=== PATIENT | male | born 1940 | race Caucasian/White ===

== ENCOUNTER 2022-09-02 04:55 | Inpatient (IN) | payer MEDICARE, OTHER ==
[~2022-09-02] VITALS: Ht 175.3 cm; Wt 72.6 kg
--- NOTE | 2022-09-02 05:12 | NUR ---
Dr. Lopez at bedside. MSE in progress.
[2022-09-02] MEDS ORDERED: PANTOPRAZOLE SODIUM IV 80 MG in IV DEXTROSE 5% 100 ML IV ONE (05:15)
[2022-09-02] MEDS ORDERED: PANTOPRAZOLE SODIUM IV 80 MG in IV DEXTROSE 5% 500 ML IV ONE (05:15)
--- NOTE | 2022-09-02 05:15 | NUR ---
Daughter at bedside.
--- NOTE | 2022-09-02 05:16 | NUR ---
PATIENT'S DAUGHTER CANNOT RECALL HOME MEDICATIONS AT THIS TIME
[2022-09-02] MEDS ORDERED: PANTOPRAZOLE SODIUM 40 MG VIAL ONE (05:27)
[2022-09-02 05:45] LABS: *OCCULT BLOOD STOOL NEGATIVE (NEGATIVE)
[2022-09-02 06:01] LABS: ALANINE AMINOTRANSFERASE 23 U/L (16-63); ALKALINE PHOSPHATASE 85 U/L (50-136); ASPARTATE AMINOTRANSFERASE 18 U/L (15-37); BILIRUBIN,DIRECT 0.1 mg/dL (0.0-0.2); BILIRUBIN,TOTAL 0.4 mg/dL (0.2-1.0); CARBON DIOXIDE 26 mmol/L (21-32); CHLORIDE 103 mmol/L (98-107); CREATININE 1.2 mg/dL (0.6-1.3); GLUCOSE 185 mg/dL (74-106); POTASSIUM 4.4 mmol/L (3.5-5.1); TOTAL PROTEIN, SERUM 5.8 g/dL (6.4-8.2); UREA NITROGEN, BLOOD 39 mg/dL (7-18)
[2022-09-02 06:02] LABS: MEAN CORPUSCULAR HEMOGLOBIN 30.4 uug (23.8-33.4); MEAN CORPUSCULAR VOLUME 86.9 fL (73.0-96.2); PLATELET COUNT (AUTO) 159 K/uL (152-348)
[2022-09-02] MEDS ORDERED: IV NORMAL SALINE 1000 ML BAG IV ONE (06:15)
[2022-09-02] MEDS ORDERED: ONDANSETRON 4 MG/2 ML VIAL IV ONE (06:15)
[2022-09-02] MEDS ORDERED: ONDANSETRON 4 MG/2 ML VIAL ONE (06:21)
--- NOTE | 2022-09-02 06:29 | NUR ---
Started second IV on LT forearm 20G.
--- NOTE | 2022-09-02 07:07 | NUR ---
called [facility]. Was told to call back in 30-45 mins. [phone]
--- NOTE | 2022-09-02 07:19 | NUR ---
Report given to LEXI Darby.
--- NOTE | 2022-09-02 07:20 | NUR ---
Received endorsement from Jennie CHINCHILLA
--- NOTE | 2022-09-02 07:30 | NUR ---
Pt is tolerating the BT. Afebrile, V/S are WNL.
--- NOTE | 2022-09-02 07:50 | NUR ---
Called [facility] spoke to Akash and took pt's information. According to the insurance sales representative, pt has to call the physician of the patient and to approve the pt's admission to [facility] and that the physician has to call the transfer ctr to verify the pt's admission. Family of the pt made aware.
--- NOTE | 2022-09-02 08:00 | NUR ---
Increased the BT rate to 125ml/hr from the initial rate of 75ml/hr.
--- NOTE | 2022-09-02 08:20 | NUR ---
Called the [facility] again and spoke to Dakota regarding the pt's case and update. Director Of Restaurant Operations took the pt's information and place Dr. Jennings as the intake physician (pt's PCP) instead of Dr. Timur Almonte (franchise specialist) who approved the pt's admission. Pt's architect is Dr. Yuniel Rizo. Dakota stated that the hospital reached its bed capacity, pt may or may not have a bed today. Faxed the clinicals to [facility]. (fax #[phone]).
--- NOTE | 2022-09-02 08:59 | NUR ---
Pt's family decided to admit the patient in [place]. Called [facility] for admission, waiting for call back. Pt will be assigned to Jan ELLIOTT. Level of care: Telemetry, room 317. made aware.
--- NOTE | 2022-09-02 09:30 | NUR ---
BT done. Pt is stabel, tolerated BT well. Temp 98.6, BP 108/50, MN 89, RR20, O2 Sat 99. Denies any pain, headache. Nausea still present.
--- NOTE | 2022-09-02 09:45 | NUR ---
Called Tele for report. RN is unavailable. Will call back as soon as RN's ready.
--- NOTE | 2022-09-02 10:13 | NUR ---
Gave report to Jan ELLIOTT.
--- NOTE | 2022-09-02 11:35 | NUR ---
Transported pt to [facility] at rm 317. Pt stable, paused the protonix drip and on 2lpm of O2. Received by Jan ELLIOTT.
[2022-09-02 11:45] VITALS: BP 108/53
[2022-09-02] MEDS ORDERED: ONDANSETRON 4 MG/2 ML VIAL IV PRN (11:45)
[2022-09-02] MEDS ORDERED: REMEDY ESSENTIAL ZINC PASTE 113 GM TP PRN (11:45)
[2022-09-02] MEDS ORDERED: IV D5 1/2 NS 1000 ML 1,000 ML IV PRN (11:45)
[2022-09-02] MEDS ORDERED: ACETAMINOPHEN 325 MG TABLET PO PRN (11:45)
[2022-09-02] MEDS ORDERED: PANTOPRAZOLE SODIUM 40 MG TABLET.DR PO SCH (11:45)
[2022-09-02] MEDS ORDERED: MAGNESIUM HYDROXIDE 30 ML LIQUID UDC PO PRN (11:45)
[2022-09-02 11:56] LABS: HEMATOCRIT 28.6 % (36.7-47.1)
--- NOTE | 2022-09-02 12:30 | NUR ---
IVIS ELLIOTT WENT TO SEE PATIENT AND ATTEMPT TO ADMIT. SON DISTURBED THAT PATIENT NOT YET SEEN BY , AND EGD NOT YET DONE. REFUSED TO HAVE IVIS ADMIT FATHER.
--- NOTE | 2022-09-02 12:50 | NUR ---
ATTEMPTED TO SPEAK TO SON TO FIGURE OUT THE PROBLEM. STATES THAT NO ONE IS TAKING CARE OF HIS DAD. INSTRUCTED THAT DR. PALMA IS BEING NOTIFIED, AND ADMISSION ORDERS WILL BE WRITTEN.
--- NOTE | 2022-09-02 13:30 | NUR ---
ATTEMPTED TO SPEAK WITH SON X 3. SON NOT IN ROOM. PATIENT DOES NOT KNOW WHERE HE WENT.
--- NOTE | 2022-09-02 14:00 | NUR ---
SON RETURNED WITH SISTER. INSTRUCTED THAT ADMISSION ORDERS WERE WRITTEN AND WILL BE CARRIED OUT. DAUGHTER VERY ANGRY AND ACTUALLY HOSTILE TOWARD NURSE THAT EGD HAS NOT BEEN ORDERED AND DONE. INSTRUCTED THAT IVIS ELLIOTT NOT COMFORTABLE TAKING CARE OF PATIENT, AND ROOM REASSIGNED TO CHELLY ELLIOTT. ALSO CHELLY WILL ADMIT PATIENT WHEN HE RETURNS FROM LUNCH. FAMILY INFORMED THAT GI CONSULT WAS CALLED.
[2022-09-02 15:26] VITALS: BP 116/53
[2022-09-02 15:42] LABS: HEMATOCRIT 26.8 % (36.7-47.1)
[2022-09-02] MEDS ORDERED: PANTOPRAZOLE SODIUM 40 MG VIAL IV SCH (15:45)
--- NOTE | 2022-09-02 16:15 | NUR ---
PT DAUGHTER VERBALIZED THAT THEY WANT TO GO AGAINST MEDICAL ADVICE. THEY GOING TO [facility] [place]. AMA FORMED SIGNED BY THE DAUGHTER.
--- NOTE | 2022-09-02 16:16 | NUR ---
NOTIFIED REGARDING PT LEAVING AGAINST MEDICAL ADVICE
--- NOTE | 2022-09-02 16:56 | NUR ---
PT LEFT THE FACILITY VIA PRIVATE CAR. ALL BELONGING ACCOUNTED FOR. IV SITE WAS REMOVED. PT DAUGHTER WILL DRIVE THE PT GOING TO [place]. EXIT CARE PROVIDED.
== END 2022-09-02 16:45 | disposition left against medical advice (07) | DRG 378 ==
LOC: ER 04:59 → TELE3 11:09
PROVIDERS: ADMIT Nurse Practitioner Acute Care; ATTEND Nurse Practitioner Acute Care
PROC: 30233N1 Transfusion of Nonautologous Red Blood Cells into Peripheral Vein, Percutaneous Approach (ICD-10-PCS; principal; 2022-09-02)
DX: K92.2 Gastrointestinal hemorrhage, unspecified (principal); D62 Acute posthemorrhagic anemia; E87.1 Hypo-osmolality and hyponatremia; D72.829 Elevated white blood cell count, unspecified; F03.90 Unspecified dementia, unspecified severity, without behavioral disturbance, psychotic disturbance, mood disturbance, and anxiety; I25.10 Atherosclerotic heart disease of native coronary artery without angina pectoris; Z85.028 Personal history of other malignant neoplasm of stomach; I25.2 Old myocardial infarction; Z90.3 Acquired absence of stomach [part of]; Z98.61 Coronary angioplasty status; Z92.3 Personal history of irradiation; R73.9 Hyperglycemia, unspecified; Z20.822 Contact with and (suspected) exposure to COVID-19; Z87.891 Personal history of nicotine dependence
CPT/HCPCS: 36415; 71045; 84484; 85018; 85025; 85730; 86850; 86900; 86901; 86920; C9113; G0378; J2405; J7040; J7060; P9016